=== PATIENT | female | born 1990 | race African-American/Black ===

== ENCOUNTER 2017-09-26 07:17 | Emergency (ER) | payer BC ==
[~2017-09-26] VITALS: Ht 170.2 cm; Wt 70.0 kg
[2017-09-26] MEDS ORDERED: MOTRIN800 MG PO (07:50)
[2017-09-26] MEDS ORDERED: KEFLEX500 M1 PO (07:50)
[2017-09-26 08:08] VITALS: BP 131/83
== END 2017-09-26 08:30 | disposition home or self-care (01) | DRG 605 ==
LOC: EDSEX 07:17 → ED 07:17
PROC: 0HQFXZZ Repair Right Hand Skin, External Approach (ICD-10-PCS; principal; 2017-09-26)
DX: S61.212A Laceration without foreign body of right middle finger without damage to nail, initial encounter (principal); S61.214A Laceration without foreign body of right ring finger without damage to nail, initial encounter; W25.XXXA Contact with sharp glass, initial encounter; Y93.89 Activity, other specified; Y92.410 Unspecified street and highway as the place of occurrence of the external cause